=== PATIENT | female | born 1980 | race Hispanic/Latino ===

== ENCOUNTER 2017-07-26 12:52 | Emergency (ER) | payer BC ==
[2017-07-26] MEDS ORDERED: ACETAMINOPHEN 325 MG TAB ONE (13:33)
[2017-07-26] MEDS ORDERED: HYDROCODONE/ACETAMINOPHEN 5/325 MG TAB ONE (13:34)
[2017-07-26] MEDS ORDERED: BENZOCAINE/LANOLIN/ALOE VERA 60 ML AEROSOL TP ONE (13:39)
== END 2017-07-26 14:39 | disposition home or self-care (01) ==
LOC: EDH 12:52
DX: L55.0 Sunburn of first degree (principal); J45.909 Unspecified asthma, uncomplicated